=== PATIENT | male | born 1995 | race African-American/Black ===

== ENCOUNTER 2021-05-29 21:28 | Emergency (ER) | payer OTHER ==
--- NOTE | 2021-05-29 23:04 | EDM.PDOC ---
ED HPI GENERAL MEDICAL PROBLEM - General Chief Complaint: Gastrointestinal Problem Stated Complaint: ABDOMINAL PAIN/BLOOD IN STOOL Time Seen by Provider: 05/29/21 22:00 Source of Information: Reports: Patient History Limitations: Reports: No Limitations - History of Present Illness INITIAL COMMENTS - FREE TEXT/NARRATIVE: Patient is a 26-year-old male with no significant past medical history presenting with a chief complaint of hemorrhoids. Patient states he was previously diagnosed with hemorrhoids and prescribed MiraLAX which she has been using with little relief. He reports symptom duration of greater than 1 week. He reports constipation being a significant issue. He reports a lot of straining when he does have a bowel movement. He has noted some blood on the toilet paper when he wipes. Otherwise, he denies any fevers, chills, abdominal pain, nausea, vomiting. Rectal Pain Score (Numeric/FACES): 7 - Related Data Allergies Allergy/AdvReac Type Severity Reaction Status Date / Time No Known Allergies Allergy Verified 05/29/21 23:09 Home Meds: Home Meds Docusate Sodium/Sennosides [Senokot-S] 1 each PO BEDTIME #30 tablet 05/29/21 [Rx] Lidocaine 2% [Lidocaine 2% Jelly] 20 ml .XX BID #1 urojet 05/29/21 [Rx] Social & Family History - Family History Family Medical History: No Pertinent Family History - Tobacco Use Tobacco Use Status *Q: Never Tobacco User - Caffeine Use Caffeine Use: Reports: None - Recreational Drug Use Recreational Drug Use: No ED ROS GENERAL - Review of Systems Review Of Systems: Comprehensive ROS is negative, except as noted in HPI. ED EXAM, GI/ABD - Physical Exam Exam: See Below Text/Narrative:: I have reviewed the triage vital signs Const: Well nourished, well developed, appears stated age Eyes:no conjunctival injection HENT: No signs of trauma or swelling, Neck supple without meningismus CV: Regular Rate Rhythm, Warm, well-perfused extremities RESP: Unlabored respiratory effort Rectal: (TARI Olvera present for exam) patient does have external hemorrhoid that is nonthrombosed. Otherwise, no bleeding. No fissures. MSK: No gross deformities appreciated Skin: Warm, dry. No rashes Neuro: Alert, glassware selector II-XII grossly intact. Sensation and motor function of extremities grossly intact. Psych: Appropriate mood and affect. Course - Vital Signs Last Recorded V/S: Last Vital Signs Temp 36.6 C 05/29/21 21:46 Pulse 82 05/29/21 21:46 Resp 18 05/29/21 21:46 BP 142/89 H 05/29/21 21:46 Pulse Ox 100 05/29/21 21:46 Departure - Departure Time of Disposition: 23:04 Disposition: Home, Self-Care 01 Clinical Impression: Hemorrhoids without complication - Discharge Information Prescriptions: Lidocaine 2% [Lidocaine 2% Jelly] 20 ml .XX BID #1 urojet Docusate Sodium/Sennosides [Senokot-S] 1 each PO BEDTIME #30 tablet Instructions: Hemorrhoids Referrals: PCP,None [Primary Care Provider] - Forms: ED Department Discharge Sepsis Event Note (ED) - Evaluation Sepsis Screening Result: No Definite Risk - Focused Exam Vital Signs: Vital Signs Temp Pulse Resp BP Pulse Ox 05/29/21 21:46 36.6 C 82 18 142/89 H 100 - Assessment/Plan Assessment:: Patient is a 26-year-old male presenting with external nonthrombosed hemorrhoid. Patient given medication for management. No indication for procedure. No evidence of perirectal abscess. Discharged with appropriate return precautions.
== END 2021-05-29 23:15 | disposition home or self-care (01) ==
LOC: JD.ED 21:28
DX: K64.4 Residual hemorrhoidal skin tags (principal)
CPT/HCPCS: 99283